=== PATIENT | male | born 1975 ===

== ENCOUNTER → 2017-06-17 | Outpatient (CLI) | payer OTHER ==
[~2017-06-17] MED LIST: DIVA500T59 PO; PRAZ2CAP3 PO
[2017-06-17 16:57] LABS: HEMATOCRIT 46.3 % (42-52); MEAN CELL VOLUME 90.1 fL (80-100); MEAN CORPUSCULAR HEMOGLOBIN 31.1 pg (25-34); MEAN PLATELET VOLUME 11.1 fL (7.4-10.4); PLATELET COUNT 199 K/uL (130-400); RED BLOOD COUNT 5.14 M/uL (4.7-6.1); WHITE BLOOD COUNT 8.03 K/uL (4.8-10.8)
[2017-06-17 17:11] LABS: MEAN CORPUSCULAR HGB CONC 34.6 g/dl (32-36)
[2017-06-17 17:19] LABS: ALB/GLOB RATIO 1.4 (0.9-2); ALKALINE PHOSPHATASE 83 U/L (45-117); ALT/SGPT 96 U/L (12-78); AST/SGOT 471 U/L (15-37); BLOOD UREA NITROGEN 10 mg/dl (7-18); BUN/CREATININE RATIO 11.9 (10-20); CALCIUM 9.4 mg/dl (8.5-10.1); CARBON DIOXIDE 27 mmol/L (21-32); CHLORIDE 107 mmol/L (98-107); CREATININE 0.85 mg/dl (0.60-1.40); GLUCOSE 69 mg/dl (70-99); POTASSIUM 4.2 mmol/L (3.5-5.1); SODIUM 141 mmol/L (136-145)
--- NOTE | 2017-06-23 10:53 | CODING QUERY MEDICAL NECESSITY ---
SUPPORTING DIAGNOSIS NEEDED Anny MARTIN, A supporting diagnosis is required for the test/procedure performed on this patient in order for us to be reimbursed by the patient's insurance. Please provide a supporting diagnosis for the following test/procedure listed below next to the test name along with your signature. *If there is no additional diagnosis for this patient that would support the following test/procedure please document that below next to the test/procedure. Test(s)/Procedure(s) that require a supporting diagnosis: * CBC W/O DIFF DIAGNOSIS: * CMP DIAGNOSIS: * URINE CULTURE DIAGNOSIS: DATE OF SERVICE: 06/17/17 Provider Signature: Date: Thank you Eliazar Elias [facility] Information Management Once completed, please kindly fax back to [phone] For questions please call [phone]
--- NOTE | 2017-06-23 10:56 | CODING QUERY NO DIAGNOSIS ---
TREATMENT RENDERED WITHOUT A DIAGNOSIS Anny MARTIN, To promote full compliance with coding requirements relating to patient care, physician participation is requested in all cases of bush and vine fruit crop farmer uncertainty. Please assist us with providing a diagnosis/symptom for the test(s) below: A diagnosis/symptom was not documented on your Order. A valid diagnosis/symptom is required to bill all insurances. Please remember that we are unable to code a diagnosis of rule out, probable, possible, questionable, or suspected. Tests that require a diagnosis: * CBC W/O DIFF DIAGNOSIS: * CMP DIAGNOSIS: * URINE CULTURE DIAGNOSIS: DATE OF SERVICE: 06/17/17 Provider Signature: Date: Thank you Eliazar Elias [facility] Information Management Once completed, please kindly fax back to [phone] For questions please call [phone]
== END | disposition home or self-care (01) ==
LOC: C.LABSPEC 16:38
PROVIDERS: ATTEND Nurse Practitioner Adult Health
DX: R10.9 Unspecified abdominal pain (principal); E86.0 Dehydration

== ENCOUNTER → 2017-06-19 | Outpatient (CLI) | payer OTHER ==
[2017-06-19 11:25] LABS: ALT/SGPT 80 U/L (12-78); BLOOD UREA NITROGEN 9 mg/dl (7-18); BUN/CREATININE RATIO 9.9 (10-20); CARBON DIOXIDE 26 mmol/L (21-32); CHLORIDE 108 mmol/L (98-107); CREATININE 0.87 mg/dl (0.60-1.40); GLUCOSE 70 mg/dl (70-99); POTASSIUM 4.3 mmol/L (3.5-5.1); SODIUM 141 mmol/L (136-145)
[2017-06-19 11:29] LABS: ALB/GLOB RATIO 1.3 (0.9-2); ALKALINE PHOSPHATASE 73 U/L (45-117); AST/SGOT 210 U/L (15-37)
--- NOTE | 2017-06-26 08:30 | CODING QUERY NO DIAGNOSIS ---
TREATMENT RENDERED WITHOUT A DIAGNOSIS To promote full compliance with coding requirements relating to patient care, physician participation is requested in all cases of acls nurse uncertainty. Please assist us with providing a diagnosis/symptom for the test(s) below: A diagnosis/symptom was not documented on your Order. A valid diagnosis/symptom is required to bill all insurances. Please remember that we are unable to code a diagnosis of rule out, probable, possible, questionable, or suspected. Tests that require a diagnosis: * COMP. METABOLIC PROFILE DIAGNOSIS: DATE OF SERVICE: 06/19/17 Provider Signature: Date: Thank you Eliazar Elias [facility] Information Management Once completed, please kindly fax back to [phone] For questions please call [phone]
== END | disposition home or self-care (01) ==
LOC: C.LABSPEC 10:53
PROVIDERS: ATTEND Nurse Practitioner Adult Health
DX: R10.9 Unspecified abdominal pain (principal); E86.0 Dehydration

== ENCOUNTER 2017-07-03 14:18 | Emergency (ER) | payer OTHER ==
[~2017-07-03] VITALS: Ht 175.3 cm; Wt 87.9 kg
[2017-07-03 14:31] VITALS: TEMP 36.7; Ht 175.3 cm; Wt 87.9 kg
[2017-07-03] MEDS ORDERED: DIVA500T59 PO (15:26)
[2017-07-03] MEDS ORDERED: PRAZ2CAP3 PO (15:26)
--- NOTE | 2017-07-03 15:36 | DIAGNOSTIC IMAGING REPORT ---
RIGHT ELBOW MIN 3 VIEWS ROUTINE CLINICAL HISTORY: Right elbow pain status post trauma COMPARISON: None. DISCUSSION: The fat pads are not displaced. No fractures or dislocations are visualized. There is mild medial soft tissue edema. IMPRESSION: No fractures or dislocations identified. Electronically signed by: Mayur Acosta M.D. 07/03/2017 3:35 PM Dictated Date/Time: 07/03/2017 3:34 PM
--- NOTE | 2017-07-03 15:45 | EMERGENCY ROOM VISIT NOTE ---
ED Visit Note First contact with patient: 14:47 CHIEF COMPLAINT: Right elbow injury this afternoon HISTORY OF PRESENT ILLNESS: Patient is a [id number] 41-year-old white male brought to the emergency department by corrections officers from [facility] for evaluation of a right elbow injury that he sustained earlier today. Injury occurred about 90 minutes ago while he was playing softball. He reports that he was batting, and hit the softball, and states that he felt a pop in the medial aspect of his right elbow. He now notes pain and swelling on the medial aspect of the elbow that is worse with any attempts at movement. He was evaluated at medical and sent to the emergency department. He has not had any medications for his pain which he rates a 9/10. There is limitation of motion of the arm because of the pain. The pain radiates down his forearm slightly. There is no numbness or tingling. REVIEW OF SYSTEMS: Review of systems as per HPI. All other systems reviewed were negative. At least 6 systems reviewed. PMH: Electronic medical records are reviewed and summarized as above/below. See Problem List. SOCIAL HISTORY: Patient is presently incarcerated. Nonsmoker. PHYSICAL EXAM: Vital Signs: Reviewed nurse's notes. CONSTITUTIONAL: Patient is a well-appearing 41-year-old white male who is awake and alert and in no acute distress. MUSCULOSKELETAL: Examination of the left elbow shows some medial soft tissue swelling. There is no elbow joint effusion palpable. Elbow is generally tender to palpation, particularly over the medial condyle, and the distal humeral condyle. Pronation and supination are full. He can extend fully , he is pain with flexion greater than 90. He has discomfort with stress of the UCL. Multiple superficial scars consistent with self-injurious behavior noted over the right upper extremity. The right upper extremity is neurovascularly intact. EMERGENCY DEPARTMENT COURSE: Ice pack was applied. X-rays were obtained and were negative for acute fracture. Patient was placed in an arm sling. Differential diagnoses include fracture, sprain, contusion, dislocation, ligamentous disruption, among others. Conservative care measures were discussed. He was encouraged to wear the arm sling, rest the arm and apply ice. Medications according to corrections facility protocol. They can arrange orthopedic follow-up if his symptoms are not improving. Medication reconciliation: I attest that I have personally reviewed the patient' s current medication list. Blood pressure screening : Patient was found to have normal blood pressure on screening and does not require follow-up. RIGHT ELBOW MIN 3 VIEWS ROUTINE CLINICAL HISTORY: Right elbow pain status post trauma COMPARISON: None. DISCUSSION: The fat pads are not displaced. No fractures or dislocations are visualized. There is mild medial soft tissue edema. IMPRESSION: No fractures or dislocations identified. Problem List Medical Problems: (1) Alcohol abuse Status: Chronic (2) Asthma Status: Chronic (3) GERD (gastroesophageal reflux disease) Status: Chronic (4) Methamphetamine abuse Status: Chronic (5) Personality disorder Status: Chronic (6) Seizure disorder Status: Chronic Current/Historical Medications Scheduled Divalproex Sodium (Depakote), 500 MG PO HS Prazosin Hcl (Prazosin), 2 MG PO HS Allergies Coded Allergies: Amoxicillin (Unverified Allergy, Unknown, hives, 07/03/17) BEE STING (Unverified Allergy, Unknown, HIVES, 07/03/17) Ketorolac Tromethamine (Unverified Allergy, Unknown, HIVES, 07/03/17) Red Dye (Unverified Allergy, Unknown, HIVES, 07/03/17) Tramadol (Unverified Allergy, Unknown, HIVES, 07/03/17) Vital Signs Date Time Temp Pulse Resp B/P (MAP) Pulse Ox O2 Delivery O2 Flow Rate FiO2 07/03/17 16:10 74 20 142/79 97 07/03/17 14:31 36.7 86 18 127/90 96 Room Air Departure Information Impression Primary Impression: Injury of right elbow Referrals [facility], [facility] (PCP) Patient Instructions [facility] Additional Instructions Ibuprofen(Motrin, Advil) may be used for fever or pain. Use 600mg every six hours as needed. Take with food. Avoid using more than 2400mg in a 24 hour period. Do not use 2400mg per day for more than three consecutive days without physician direction. Prolonged inappropriate use can lead to stomach upset or ulcers. This medication can be taken if you need to drive, work, or perform activities which may be dangerous when taking narcotic pain medication. (AND/OR) Acetaminophen(Tylenol) may be used for fever or pain. Use 1000mg every six hours as needed. Avoid using more than 3000mg in a 24 hour period. This medication can be taken if you need to drive, work, or perform activities which may be dangerous when taking narcotic pain medication. Ice compresses for 20 minutes at a time four times daily for 2-3 days. Use the sling as instructed. Remove your arm from the sling 4-6 times a day and move all the joints around to keep them loose. Rest and elevate your injury. Continue current medications. Follow-up with orthopedic surgery if symptoms are not improving in 5-7 days.
[2017-07-03 16:10] VITALS: BP 142/79; PULSE 74; O2SAT 97
== END 2017-07-03 16:12 | disposition other institution (70) ==
LOC: C.EDB 14:19 → C.EDD 16:12
DX: S59.901A Unspecified injury of right elbow, initial encounter (principal); X58.XXXA Exposure to other specified factors, initial encounter; Y93.64 Activity, baseball; J45.909 Unspecified asthma, uncomplicated; K21.9 Gastro-esophageal reflux disease without esophagitis; G40.909 Epilepsy, unspecified, not intractable, without status epilepticus; Z79.899 Other long term (current) drug therapy; Z88.1 Allergy status to other antibiotic agents; Z88.8 Allergy status to other drugs, medicaments and biological substances; Z91.030 Bee allergy status; Z91.09 Other allergy status, other than to drugs and biological substances

== ENCOUNTER → 2017-07-22 | Outpatient (CLI) | payer OTHER ==
[2017-07-22 16:55] LABS: BASO % 0.8 %; BASO ABS # 0.05 K/uL (0-0.2); HEMATOCRIT 43.2 % (42-52); IG% 0.5 %; LYMPH % 18.8 %; LYMPH ABS # 1.12 K/uL (1.2-3.4); MEAN CELL VOLUME 86.9 fL (80-100); MEAN CORPUSCULAR HEMOGLOBIN 31.2 pg (25-34); MEAN PLATELET VOLUME 10.8 fL (7.4-10.4); MONO % 8.2 %; NEUT % 65.7 %; PLATELET COUNT 189 K/uL (130-400); RED BLOOD COUNT 4.97 M/uL (4.7-6.1); WHITE BLOOD COUNT 5.96 K/uL (4.8-10.8)
[2017-07-22 17:10] LABS: COMPLETE YES; MEAN CORPUSCULAR HGB CONC 35.9 g/dl (32-36)
== END | disposition home or self-care (01) ==
LOC: C.LABSPEC 16:40
PROVIDERS: ATTEND Physician Assistant Medical
DX: R10.9 Unspecified abdominal pain (principal)